=== PATIENT | male | born 1955 | race Caucasian/White ===

== ENCOUNTER 2023-08-30 05:57 | Emergency (ER) | payer MEDICARE, SELFPAY ==
[2023-08-30 06:08] VITALS: BP 120/71; PULSE 67; RESP 18; O2SAT 97; BMI 26.4
--- NOTE | 2023-08-30 06:35 | ED_ITS ---
HPI - Extremity Problem General Chief complaint: Extremity Problem,Nontraumatic Stated complaint: hurt left hand Time Seen by Provider: 08/30/23 06:20 Source: patient Mode of arrival: Wheelchair History of Present Illness HPI Narrative: Gentleman with known gouty arthritis presents with 2 days of swelling and pain in the left wrist and right foot. There is no trauma associated with this. No fever. No systemic signs of infection or illness according to the patient. He denies any other health conditions. He can not say whether colchicine or NSAIDs or systemic steroids are more or less effective. He says that 1 treatment he received cause profuse diarrhea which I presume was colchicine. He also has complaints about a lesion on his right forehead. He also has questions about skin tags and toenail fungus. Related Data Previous Rx's Medication Instructions Recorded prednisone 20 mg tablet 40 mg (2 x 20 mg) PO DAILY #10 tabs 08/30/23 Allergies Allergy/AdvReac Type Severity Reaction Status Date / Time No Known Drug Allergies Allergy Verified 08/30/23 06:36 Patient History Social History Smoking Status: Former smoker Smoking Status: Former smoker Substance Use Type: does not use Exam Narrative Exam Narrative: GENERAL: Alert, cooperative and in no distress. HEAD: Atraumatic. Normocephalic. EYES: Sclera are clear without icterus. Extraocular movements are full. ENT: No rhinorrhea NECK: No visible abnormality RESPIRATORY: No respiratory distress, lungs clear to auscultation. Heart: Normal regular rhythm with minimal tachycardia no murmur GASTROINTESTINAL: Nondistended EXTREMITIES: No obvious trauma. Swollen tender red and warm left wrist. Pain is much worse with movement. Right foot appears normal but is warm to touch and tender with movement midfoot NEURO: Nonfocal, normal speech SKIN: No rash or erythema of visible areas PSYCH: Normally oriented. Normal range of affect. Appropriate behavior Initial Vital Signs Initial Vital Signs: Vital Signs Pulse Rate 67 08/30/23 06:08 Respiratory Rate 18 08/30/23 06:08 Blood Pressure 120/71 08/30/23 06:08 Pulse Oximetry 97 08/30/23 06:08 Oxygen Delivery Method Room Air 08/30/23 06:08 Course Orders Ordered: Discontinued Medications Ketorolac Tromethamine (Ketorolac 30 Mg/Ml Vial) 30 mg IM NOW ONE Stop: 08/30/23 06:38 Last Admin: 08/30/23 06:48 Dose: 30 mg Prednisone (Prednisone 20 Mg Tablet) 40 mg PO NOW ONE Stop: 08/30/23 06:38 Last Admin: 08/30/23 06:48 Dose: 40 mg Vital Signs Vital signs: Vital Signs - 8 hr 08/30/23 06:08 08/30/23 06:48 Temperature 97.9 F Pulse Rate 67 Respiratory Rate 18 Blood Pressure 120/71 Pulse Oximetry 97 Oxygen Delivery Method Room Air MDM - Extremity (Nontraumatic) MDM Narrative Medical decision making narrative: I examined the lesion on the right forehead which is clearly a seborrheic raimundo tosis about 2 cm in diameter. I told him that outpatient therapy for this is recommended at times if desired but that no dangerous pathology develops from these lesions. He also has toenail fungus and skin tags I told him both these item should be treated by his primary care provider. Discharge Plan Departure Patient Disposition: Home Clinical Impression: Gout Activity Restrictions/Additional Instructions: You have gouty arthritis. Take prednisone 40 mg daily for the next 5 days. This should dramatically improved the pain over the coming hours and days. I also gave you a single dose of ketorolac in the Emergency Department in the hopes that this will provide more immediate pain relief. You asked me about skin tag removal and toenail fungus and a lesion on your head. Lesion on your head is a seborrheic keratosis. All these conditions could be managed by primary care doctor and I recommend you follow-up for such treatments. These things are not typically managed in the emergency department. Consider follow-up with your primary care doctor to discuss long-term management of gout. Commonly allopurinol is used to prevent recurrent episodes of gout You should follow-up with the clinic in a few days if the symptoms are not improving significantly. Prescriptions: New prednisone 20 mg tablet 40 mg PO DAILY Qty: 10 0RF Referrals: Дмитрий Lopez MD [Physician] - Stand Alone Forms: Patient Portal/API
[2023-08-30 06:48] VITALS: TEMP 36.6
[2023-08-30] MEDS: KETOROLAC 30 MG/ML VIAL IM (06:48)
[2023-08-30] MEDS: predniSONE 20 MG TABLET 40 MG PO (06:48)
[2023-08-30 07:08] VITALS: BP 122/76; PULSE 60; RESP 18; TEMP 36.7; O2SAT 97
== END 2023-08-30 07:08 | disposition home or self-care (01) ==
PROVIDERS: Emergency Provider Family Medicine Addiction Medicine
DX: M10.9 Gout, unspecified (principal)
CPT/HCPCS: 96372; 99283; J1885